=== PATIENT | male | born 1960 | race Caucasian/White ===

== ENCOUNTER → 2022-08-21 | Outpatient (CLI) | payer BC ==
--- NOTE | 2022-08-22 08:56 | CA ---
Transthoracic Echo Report Name: Dylon Murphy Age: 62 Gender: M : 1960 Exam Date: 08/21/2022 16:05 Exam Location: [facility] Ht (in): 72 Wt (lb): 200 Ordering Physician: Bridger Pal DO Attending/Referring Phys: Internal Control Manager Ryan North RDCS Procedure CPT: Indications: R94.31 ABNORMAL ELECTROCARDIOGRAM [ECG] [EKG] Cardiac Hx: Technical Quality: Good Contrast 1: Total Dose (mL): Contrast 2: Total Dose (mL): MEASUREMENTS (Male / Female) Normal Values 2D ECHO LV Diastolic Diameter PLAX 3.3 cm 4.2 - 5.9 / 3.9 - 5.3 cm LV Systolic Diameter PLAX 2.5 cm LV Fractional Shortening PLAX 23.2 % IVS Diastolic Thickness 2.0 cm 0.6 - 1.0 / 0.6 - 0.9 cm IVS Systolic Thickness 2.0 cm LVPW Diastolic Thickness 1.5 cm 0.6 - 1.0 / 0.6 - 0.9 cm LVPW Systolic Thickness 1.8 cm LV Relative Wall Thickness 1.1 RV Internal Dim ED PLAX 3.0 cm LVOT Diameter 2.3 cm Aortic Root Diameter 3.5 cm LA Systolic Diameter LX 3.1 cm 3.0 - 4.0 / 2.7 - 3.8 cm LA Ao Ratio 0.9 LV Diastolic Volume MOD BP 100.0 cm??? 67 - 155 / 56 - 104 cm??? LV Systolic Volume MOD BP 32.3 cm??? 22 - 58 / 19 - 49 cm??? LV Ejection Fraction MOD BP 67.6 % >= 55 % LV Stroke Volume MOD BP 67.6 cm??? LV Diastolic Volume MOD 4C 110.1 cm??? LV Systolic Volume MOD 4C 33.2 cm??? LV Ejection Fraction MOD 4C 69.8 % LV Stroke Volume MOD 4C 76.8 cm??? LV Diastolic Length 4C 7.7 cm LV Systolic Length 4C 6.3 cm LV Diastolic Volume MOD 2C 86.7 cm??? LV Systolic Volume MOD 2C 31.5 cm??? LV Ejection Fraction MOD 2C 63.6 % LV Stroke Volume MOD 2C 55.1 cm??? LV Diastolic Length 2C 8.1 cm LV Systolic Length 2C 6.3 cm Ascending Aorta Diameter 2.9 cm M-MODE Aortic Root Diameter MM 4.2 cm LA Systolic Diameter MM 2.5 cm LA Ao Ratio MM 0.6 AV Cusp Separation MM 2.4 cm DOPPLER AV Peak Velocity 117.2 cm/s AV Peak Gradient 5.5 mmHg MV Deceleration [place] 354.4 cm/s??? MR Peak Velocity 115.4 cm/s MR Peak Gradient 5.3 mmHg MR Mean Velocity 96.5 cm/s MR Mean Gradient 3.9 mmHg MR Velocity Time Integral 27.7 cm Mitral E Point Velocity 84.6 cm/s Mitral A Point Velocity 71.0 cm/s Mitral E to A Ratio 1.2 MV Deceleration Time 238.7 ms MV E' Velocity 7.6 cm/s Mitral E to MV E' Ratio 11.2 TR Peak Velocity 125.8 cm/s TR Peak Gradient 6.3 mmHg Right Ventricular Systolic Press 14.3 mmHg PV Peak Velocity 77.5 cm/s PV Peak Gradient 2.4 mmHg FINDINGS Left Ventricle Left ventricular ejection fraction is estimated at 55-60 %. Borderline left ventricular hypertrophy. Normal left ventricular diastolic filling pattern. Normal left ventricular wall motion. Right Ventricle Normal right ventricular size and function. Right Atrium Normal right atrial size. Left Atrium Normal left atrial size. Mitral Valve Structurally normal mitral valve. Trace mitral regurgitation. Aortic Valve Trileaflet aortic valve. Tricuspid Valve Mild tricuspid regurgitation. Pulmonic Valve Structurally normal pulmonic valve. Pericardium Normal pericardium. No pericardial effusion. Aorta Mildly dilated proximal ascending aorta (tube). CONCLUSIONS Normal LV systolic function with borderline left ventricular hypertrophy Normal mitral valve with trace mitral regurgitation Normal aortic valve with no stenosis or regurgitation Previewed by: Dr. Venkat Valle MD (Electronically Signed) Final Date: 22 August 2022 08:55
== END | disposition home or self-care (01) ==
LOC: RADECHMAIN 15:45
PROVIDERS: ATTEND Family Medicine
DX: I34.0 Nonrheumatic mitral (valve) insufficiency (principal); R94.31 Abnormal electrocardiogram [ECG] [EKG]
CPT/HCPCS: 93306

== ENCOUNTER → 2022-10-10 | Outpatient (CLI) | payer BC ==
--- NOTE | 2022-10-10 12:42 | CA ---
Exercise Stress Test Report Name: Dylon Murphy Exam Date: 10/10/2022 09:34 Exam Location: [place] [facility] Ht (in): 72 Wt (lb): 210 BSA: 2.18 Ordering Phys: Alayna Skaggs DO Referring Phys: ALAYNA SKAGGS,, Technologist: Casper Dewey Age: 62 Gender: M : 1960 Procedure CPT: Indications: R94.31 ABNORMAL EKG ICD-10 Codes: Patient History: Abnormal EKG Medications: Meds past 24 hrs: Pretest Chest Pain: STRESS TEST Olu Protocol Exercise Duration (min:sec): 09:[address] Depressions (mm): 0 Angina Score: 0 Miranda Score: 9 Resting HR (bpm): 66 Peak HR (bpm): 149 Resting BP (mmHg): 124 / 86 Peak BP (mmHg): 198 / 74 MPHR: 159 Target HR: 135 % MPHR: 94 METS: 10.3 Total Dose: Peak Dose: Atropine: Double Product: 81212 BP Response: Stress Termination: Reached target heart rate Stress Symptoms: No chest pain or symptoms Stress Summary: The patient's target heart rate was achieved ECG ANALYSIS Resting ECG: Sinus rhythm. Normal conduction. No arrhythmias. Normal repolarization. Stress ECG: No ECG evidence of ischemia with exercise. CONCLUSIONS Patient falls into low-risk group (DTS >= +5). This associates the patient with an annual CV mortality <= 0.5%. 1. Good exercise tolerance 2.No chest discomfort with stress test. 3. Normal electrocardiographic response to exercise with no evidence of stress induced ischemia. Dr. Margie Ellison MD (Electronically Signed) Final Date: 10 October 2022 12:40
== END | disposition home or self-care (01) ==
LOC: RADNMMAIN 08:26
PROVIDERS: ATTEND Family Medicine
DX: R94.31 Abnormal electrocardiogram [ECG] [EKG] (principal)
CPT/HCPCS: 93017

== ENCOUNTER 2024-04-16 08:34 | Day surgery (SDC) | payer BC ==
[2024-04-15 10:31] VITALS: BMI 27.5
[~2024-04-16 08:34] MED LIST: LACTATED RINGERS 1,000 ML IV SCH
[2024-04-16 09:02] VITALS: TEMP 97.1
[2024-04-16] MEDS: TETRACAINE 0.5% OPHTH (PF) DROPS 4 ML BTL OP PRN (09:04)
[2024-04-16] MEDS: PHENYLEPHRINE 2.5% OPHTH DRP 2ML OP PRN (09:04)
[2024-04-16] MEDS: IV FLUID CONTINUATION 1,000 ML IV ONE (09:18)
[2024-04-16] MEDS: CYCLOPENTOLATE 1% OPHTH SOLN 2 ML BTL OP PRN (09:26)
[2024-04-16] MEDS ORDERED: fentaNYL (PF) 50 MCG/ML 2 ML AMP ONE (09:38)
[2024-04-16] MEDS ORDERED: MIDAZOLAM 2 MG/2 ML VIAL ONE (09:38)
[2024-04-16] MEDS: EPINEPHrine (PF) 0.3 ML in BALANCED SALT IRRIG SOLN COMB2 500 ML IRRIGATION ONE (09:53)
[2024-04-16] MEDS: HYALURONATE SODIUM INTRAOCULAR 1 EACH SYRINGE (12MG/ML) INTRAOCULA ONE (09:57)
[2024-04-16] MEDS: LIDOCAINE 1% (PF) 10MG/ML VIAL MISCELLANE ONE (09:58)
[2024-04-16] MEDS: BALANCED SALT IRRIG SOLN COMB2 15 ML IRRIG.SOLN INTRAOCULA ONE (09:58)
[2024-04-16] MEDS: TIMOLOL 0.5% OPHTH DROPS 5 ML BTL OP PRN (09:58)
[2024-04-16] MEDS: MOXIFLOXACIN HCL 0.5% DROPS 3 ML BTL OP PRN (09:59)
--- NOTE | 2024-04-16 10:09 | P.OP ---
Date of Procedure: 04/16/24 Preoperative Diagnosis: NS & PSC Postoperative Diagnosis: same Procedure(s) Performed: PIOL< OD Implants: MX60E 19.50 Anesthesia: MAC Surgeon: Epifanio Sherwood Pathology: none sent Condition: stable Disposition: same day Indications for Procedure: blurry vision Operative Findings: no complications
[2024-04-16 10:46] VITALS: BP 124/76; PULSE 93; RESP 16
--- NOTE | 2024-04-16 19:04 | OP ---
OPERATIVE REPORT DATE OF SERVICE : 04/16/2024 PREOPERATIVE DIAGNOSES: Nuclear sclerosis, posterior subcapsular cataract. POSTOPERATIVE DIAGNOSIS: Nuclear sclerosis, posterior subcapsular cataract. PROCEDURES PERFORMED: Phacoemulsification of cataract and interocular lens implant, right eye. ESTIMATED BLOOD LOSS: Zero. SPECIMEN TAKEN: None. NARRATIVE: After obtaining the appropriate consent, the patient was brought to the operating room where the patient was placed under cardiac monitoring and prepped and draped in the usual sterile manner. At the 11 o'clock position, a 15-degree super sharp blade was used to create a paracentesis followed by instillation of 1% Xylocaine MPF 50:50 mix with BSS into the anterior chamber. This was followed by Amvisc viscoelastic to stabilize the anterior chamber. At the 9 o'clock position a self-sealing corneal flap incision was created using 2.8 mm bryon keratome. A cystotome was used to initiate a continuous tear capsulorrhexis which was completed with the Utrata forceps. A Binkhorst cannula was used to hydrodissect the lens nucleus followed by hydrodelineation. Phacoemulsification of the lens was performed utilizing phacochop in 9.31 seconds at 12.7% power. The remaining cortical material was removed using the irrigation aspiration mode followed by additional 1% Xylocaine MPF into the anterior chamber followed by viscoelastic to stabilize the capsular bag. A [employer] MX60E 19.5 diopters posterior chamber lens was placed into the capsular bag without difficulty. The remaining viscoelastic material was removed from the anterior chamber with the irrigation/aspiration. Balanced salt solution was used to normalize the intraocular pressure. The incision was checked for watertight integrity. The patient then received 2 drops of 0.5% timolol followed by 2 drops Vigamox, was lightly patched and shielded in the usual manner. There were no complications from the procedure. The patient tolerated the procedure well and was returned to recovery in good condition. MMODL / IJN: [id number] /
== END 2024-04-16 10:59 | disposition home or self-care (01) ==
LOC: OR 08:34
PROVIDERS: ATTEND Ophthalmology
DX: H25.11 Age-related nuclear cataract, right eye (principal); H25.041 Posterior subcapsular polar age-related cataract, right eye; I10 Essential (primary) hypertension; E78.5 Hyperlipidemia, unspecified; F90.9 Attention-deficit hyperactivity disorder, unspecified type; Z79.899 Other long term (current) drug therapy
CPT/HCPCS: 66984; C1780; J2250; J0171; J3010; J2003

== ENCOUNTER 2024-05-21 08:15 | Day surgery (SDC) | payer BC ==
[2024-05-20 09:16] VITALS: BMI 28.3
[~2024-05-21 08:15] MED LIST changes: -LACTATED RINGERS 1,000 ML IV SCH; +LIDOCAINE 1% (10MG/ML) FOR IV START INTRADERMA PRN; +TETRACAINE 0.5% OPHTH (PF) DROPS 4 ML BTL OP PRN
[2024-05-21] MEDS: CYCLOPENTOLATE 1% OPHTH SOLN 2 ML BTL OP PRN (08:48)
[2024-05-21] MEDS: PHENYLEPHRINE 2.5% OPHTH DRP 2ML OP PRN (08:51)
[2024-05-21] MEDS: LIDOCAINE 1% (10MG/ML) FOR IV START INTRADERMA ONE (08:55)
[2024-05-21] MEDS: LACTATED RINGERS 1,000 ML IV SCH (08:55)
[2024-05-21] MEDS: IV FLUID CONTINUATION 1,000 ML IV ONE (08:55)
[2024-05-21 09:05] VITALS: TEMP 97.4
[2024-05-21] MEDS ORDERED: MIDAZOLAM 2 MG/2 ML VIAL ONE (09:25)
[2024-05-21] MEDS ORDERED: fentaNYL (PF) 50 MCG/ML 2 ML AMP ONE (09:25)
[2024-05-21] MEDS: HYALURONATE SODIUM INTRAOCULAR 1 EACH SYRINGE (12MG/ML) INTRAOCULA ONE (09:32)
[2024-05-21] MEDS: TIMOLOL 0.5% OPHTH DROPS 5 ML BTL OP PRN (09:32)
[2024-05-21] MEDS: MOXIFLOXACIN HCL 0.5% DROPS 3 ML BTL OP PRN (09:32)
[2024-05-21] MEDS: LIDOCAINE 1% (PF) 10MG/ML VIAL SQ ONE (09:33)
[2024-05-21] MEDS: BALANCED SALT IRRIG SOLN COMB2 15 ML IRRIG.SOLN IRRIGATION ONE (09:33)
[2024-05-21] MEDS: EPINEPHrine (PF) 0.3 ML in BALANCED SALT IRRIG SOLN COMB2 500 ML IRRIGATION ONE (09:34)
--- NOTE | 2024-05-21 09:52 | P.OP ---
Date of Procedure: 05/21/24 Preoperative Diagnosis: NS Postoperative Diagnosis: PIOL, OS Procedure(s) Performed: PIOL, OS Implants: MX60E 19.00 Anesthesia: MAC Surgeon: Epifanio Sherwood Pathology: none sent Condition: stable Disposition: same day Indications for Procedure: blurry vision Operative Findings: no complications
[2024-05-21 10:24] VITALS: BP 125/78; PULSE 60; RESP 17
--- NOTE | 2024-05-21 19:13 | OP ---
OPERATIVE REPORT DATE OF SERVICE : 05/21/2024 PREOPERATIVE DIAGNOSIS: Nuclear sclerosis. POSTOPERATIVE DIAGNOSIS: Nuclear sclerosis. OPERATION: Phacoemulsification with intraocular lens implant, left eye. ESTIMATED BLOOD LOSS: Zero. SPECIMEN TAKEN: None. NARRATIVE: After obtaining the appropriate consent, the patient was brought to the operating room where the patient was placed under cardiac monitoring and prepped and draped in the usual sterile manner. At the 5 o'clock position, a 15-degree super sharp blade was used to create a paracentesis followed by instillation of 1% Xylocaine MPF 50:50 mix with BSS into the anterior chamber. This was followed by Amvisc viscoelastic to stabilize the anterior chamber. At the 3 o'clock position a self-sealing corneal flap incision was created using 2.8 mm bryon keratome. A cystotome was used to initiate a continuous tear capsulorrhexis which was completed with the Utrata forceps. A Binkhorst cannula was used to hydrodissect the lens nucleus followed by hydrodelineation. Phacoemulsification of the lens was performed utilizing phacochop in 5.76 seconds at 7.7% power. The remaining cortical material was removed using the irrigation aspiration mode followed by additional 1% Xylocaine MPF into the anterior chamber followed by viscoelastic to stabilize the capsular bag. A [employer]ch [employer] Lomb Envista [id number], 19 diopter posterior chamber intraocular lens was placed into the capsular bag without difficulty. The remaining viscoelastic material was removed from the anterior chamber with the irrigation/aspiration. Balanced salt solution was used to normalize the intraocular pressure. The incision was checked for watertight integrity. The patient then received 2 drops of 0.5% timolol followed by 2 drops Vigamox, was lightly patched and shielded in the usual manner. There were no complications from the procedure. The patient tolerated the procedure well and was returned to recovery in good condition. MMODL / IJN: [id number] /
== END 2024-05-21 10:38 | disposition home or self-care (01) ==
LOC: OR 08:15
PROVIDERS: ATTEND Ophthalmology
DX: H25.12 Age-related nuclear cataract, left eye (principal); H53.47 Heteronymous bilateral field defects; H40.003 Preglaucoma, unspecified, bilateral; H47.42 Disorders of optic chiasm in (due to) neoplasm; H52.4 Presbyopia; H52.13 Myopia, bilateral; D49.7 Neoplasm of unspecified behavior of endocrine glands and other parts of nervous system; I10 Essential (primary) hypertension; E78.5 Hyperlipidemia, unspecified; F90.9 Attention-deficit hyperactivity disorder, unspecified type; K21.9 Gastro-esophageal reflux disease without esophagitis; Z98.41 Cataract extraction status, right eye; Z96.1 Presence of intraocular lens; Z79.899 Other long term (current) drug therapy; Z90.49 Acquired absence of other specified parts of digestive tract; Z87.891 Personal history of nicotine dependence
CPT/HCPCS: 66984; C1780; J2250; J0171; J3010; J2003